=== PATIENT | female | born 1995 | race Caucasian/White ===

== ENCOUNTER 2017-05-26 17:35 | Inpatient (IN) | payer OTHER ==
[~2017-05-26] VITALS: Ht 152.4 cm; Wt 56.6 kg
[2017-05-26] MEDS ORDERED: POTASSIUM CHLORIDE 20 MEQ ER TABLET PO ONE (20:15)
[2017-05-26] MEDS ORDERED: ZOLPIDEM TARTRATE 10 MG TABLET PO PRN (20:15)
[2017-05-26] MEDS ORDERED: HALOPERIDOL 5 MG TABLET PO PRN (20:15)
[2017-05-26] MEDS ORDERED: LORazepam 2 MG TABLET PO PRN (20:15)
[2017-05-26] MEDS: MIRTAZAPINE 15 MG TABLET PO SCH (20:48)
[2017-05-26] MEDS: DOXYCYCLINE 100 MG CAPSULE PO SCH (20:49)
[2017-05-26] MEDS: QUEtiapine FUMARATE 200 MG TABLET PO SCH (20:49)
[2017-05-26 20:51] VITALS: BP 117/83
[2017-05-27] MEDS: DOXYCYCLINE 100 MG CAPSULE PO SCH ×2 (08:09→16:39)
[2017-05-27 08:28] VITALS: BP 131/71
[2017-05-27 19:26] VITALS: BP 136/90
[2017-05-27] MEDS: MIRTAZAPINE 15 MG TABLET PO SCH (20:12)
[2017-05-27] MEDS: QUEtiapine FUMARATE 200 MG TABLET PO SCH (20:13)
[2017-05-27] MEDS ORDERED: ACETAMINOPHEN 325 MG TABLET PO PRN (21:45)
[2017-05-27] MEDS ORDERED: IBUPROFEN 400 MG TABLET PO PRN (21:45)
[2017-05-28 06:52] LABS: BASOPHILS % (AUTO) 0.5 % (0.0-2.0); EOSINOPHILS % (AUTO) 1.5 % (1.0-6.0); HEMATOCRIT 39.4 % (36-46); HEMOGLOBIN 13.1 g/dL (12.0-16.0); LYMPHOCYTES # (AUTO) 4.4 K/uL (1.0-4.8); LYMPHOCYTES % (AUTO) 47.2 % (22.0-44.0); MEAN CORPUSCULAR HEMOGLOBIN 30.4 pg (26.0-34.0); MEAN CORPUSCULAR HGB CONC 33.4 G/dL (31.0-37.0); MEAN CORPUSCULAR VOLUME 91 fL (80-100); MONOCYTES # (AUTO) 0.7 K/uL (0.1-1.0); NEUTROPHILS % (AUTO) 42.8 % (40.0-70.0); PLATELET COUNT (AUTO) 235 K/uL (150-450); RED BLOOD CELL COUNT(AUTO) 4.31 MIL/uL (4.00-5.20); RED CELL DISTRIBUTION WIDTH 14.5 % (11.5-14.5); WHITE BLOOD COUNT (AUTO) 9.2 K/uL (4.5-11.0)
[2017-05-28 07:12] LABS: ANION GAP 8 mmol/L (8-16); CARBON DIOXIDE 27 mmol/L (22-29); CHLORIDE 106 mmol/L (98-107); CREATININE 0.62 mg/dL (0.60-1.30); POTASSIUM 4.2 mmol/L (3.5-5.1); SODIUM SERUM 141 mmol/L (136-145); UREA NITROGEN, BLOOD 16 mg/dL (7-18)
[2017-05-28 07:13] LABS: ALANINE AMINOTRANSFERASE 29 U/L (12-78); ALBUMIN 3.5 g/dL (3.4-5.0); ASPARTATE AMINOTRANSFERASE 18 U/L (15-37); BILIRUBIN,TOTAL 0.2 mg/dL (0.1-1.0); CALCIUM, TOTAL 8.8 mg/dL (8.8-10.5); CHOL/HDL RATIO 3.2 (3.9-5.7); GLOMERULAR FILTR. RATE CALC > 60 mL/min (>60); THYROID STIMULATING HORMONE 1.18 uIU/mL (0.36-3.74); TOTAL PROTEIN, SERUM 7.3 g/dL (6.4-8.2)
[2017-05-28 07:17] LABS: HEMOGLOBIN A1C 5.5 % (4.5-6.2)
[2017-05-28 08:57] VITALS: BP 118/70
[2017-05-28] MEDS: DOXYCYCLINE 100 MG CAPSULE PO SCH ×2 (09:06→16:31)
[2017-05-28] MEDS: MIRTAZAPINE 15 MG TABLET PO SCH (20:14)
[2017-05-28] MEDS: QUEtiapine FUMARATE 200 MG TABLET PO SCH (20:14)
[2017-05-28 22:43] VITALS: BP 129/74
[2017-05-29 11:16] VITALS: BP 116/66
[2017-05-29] MEDS: MIRTAZAPINE 15 MG TABLET PO SCH (20:46)
[2017-05-29] MEDS: QUEtiapine FUMARATE 200 MG TABLET PO SCH (20:46)
[2017-05-29 23:24] VITALS: BP 118/74
[2017-05-30 08:31] VITALS: BP 104/60
[2017-05-30 17:36] VITALS: BP 139/90
[2017-05-30] MEDS: MIRTAZAPINE 15 MG TABLET PO SCH (20:15)
[2017-05-30] MEDS: QUEtiapine FUMARATE 200 MG TABLET PO SCH (20:15)
[2017-05-31 08:30] VITALS: BP 132/74
[2017-05-31] MEDS: MIRTAZAPINE 15 MG TABLET PO SCH (20:35)
[2017-05-31] MEDS: QUEtiapine FUMARATE 200 MG TABLET PO SCH (20:35)
[2017-05-31 20:57] VITALS: BP 127/79
[2017-06-01 10:36] VITALS: BP 120/79
[2017-06-01] MEDS ORDERED: QUET200T PO (12:49)
[2017-06-01] MEDS ORDERED: MIRT15 PO (12:49)
== END 2017-06-01 14:15 | disposition home or self-care (01) | DRG 885 ==
LOC: 3EX 17:35
DX: F29 Unspecified psychosis not due to a substance or known physiological condition (principal); F25.9 Schizoaffective disorder, unspecified; F31.9 Bipolar disorder, unspecified; F60.3 Borderline personality disorder; F15.90 Other stimulant use, unspecified, uncomplicated; Z79.899 Other long term (current) drug therapy
CPT/HCPCS: 83036; 84132; 84443; 87081